=== PATIENT | male | born 1965 | race Caucasian/White ===

== ENCOUNTER 2017-06-04 20:37 | Emergency (ER) | payer SELFPAY ==
--- NOTE | 2017-06-04 20:39 | PDOC ---
History of Present Illness - General History Source: Patient Exam Limitations: No Limitations - History of Present Illness Initial Comments: 06/04/17 21:12 The patient is a 51-year-old male, with no significant past medical history, who presents to the ED with a laceration to the palmar surface of his right middle finger. The patient states that he was drinking from a wine glass. The glass fell and a piece of the glass cut his finger. He states that the skin was initially intact but after running it under some cold water a chunk of skin had came off. He does not recall when his last tetanus shot was. PAST MEDICAL HISTORY: no significant history PAST SURGICAL HISTORY: no significant history FAMILY HISTORY: no pertinent history HISTORY: Pt lives with family and is employed. MEDICATIONS: reviewed ALLERGIES: As per nursing notes Adult ROS General: No fevers or chills, no weakness, no weight loss HEENT: No change in vision. No sore throat,. No ear pain CardioVascular: No chest pain or shortness of breath Respiratory:No cough, or wheezing. Gastrointestinal: no nausea, vomiting, diarrhea or constipation, No rectal bleeding Genitourinary: No dysuria, hematuria, or frequency Musculoskeletal: No joint or muscle pain or swelling Neurologic: No headache, vertigo, dizziness or loss of consciousness Psychiatric: nor depression Skin: (+)Laceration to right middle finger. No easy bruising Endocrine: no increased thirst or abnormal weight change Allergic: no skin or latex allergy All other systems reviewed and normal Basic PE GENERAL: The patient is awake, alert, and fully oriented, in no acute distress. HEAD: Normal with no signs of trauma. EYES: Pupils equal, round and reactive to light, extraocular movements intact, sclera anicteric, conjunctiva clear. EXTREMITIES: Normal range of motion, no edema. NEUROLOGICAL: Normal speech, normal gait. PSYCH: Normal mood, normal affect. SKIN: (+)Right middle finger: there is an avulsion of the skin over the pip joint. The patient is able to fully flex and extend the finger with good strength. Sensation distally is intact. There is no foreign body on exam. Warm, Dry, normal turgor. <Deanna Valdes - Last Filed: 06/04/17 21:12> - General History Source: Patient Exam Limitations: No Limitations - History of Present Illness Initial Comments: A portion of this note was documented by scribe services under my direction. I have reviewed the details of the note, within reason, and agree with the documentation. The case summary and management plan written by me. Assessment and plan: This is a 51-year-old male who has a skin avulsion of the right middle finger palmar side. There is no visible injury to the ligaments and tendons of the finger patient has full range of motion with some discomfort but able to fully flex and extend the finger. Estrace and was placed over the avulsed area and a dressing was placed over that. Patient was referred to Dr. Stanley hand surgery in case he needs any skin grafting. <Scott Perez I - Last Filed: 06/04/17 21:49> - General Chief Complaint: Injury Stated Complaint: LACERATION TO RT MIDDLE FINGER Time Seen by Provider: 06/04/17 20:39 Past History <Deanna Valdes - Last Filed: 06/04/17 21:12> <Scott Perez I - Last Filed: 06/04/17 21:49> - Past Medical History Allergies/Adverse Reactions: Allergies Allergy/AdvReac Type Severity Reaction Status Date / Time No Known Allergies Allergy Verified 06/04/17 21:14 Home Medications: Ambulatory Orders NK [No Known Home Medication] 06/04/17 Review of Systems - Review of Systems Able to Perform ROS?: Yes <Deanna Valdes - Last Filed: 06/04/17 21:12> *DC/Admit/Observation/Transfer - Attestations Scribe Attestion: 06/04/17 21:20 Documentation prepared by Deanna Valdes, acting as senior medical director for Scott Perez MD. <Deanna Valdes - Last Filed: 06/04/17 21:12> - Discharge Dispostion Admit: No <Scott Perez I - Last Filed: 06/04/17 21:49> Diagnosis at time of Disposition: Laceration of right middle finger - Discharge Dispostion Disposition: HOME Condition at time of disposition: Good - Patient Instructions Additional Instructions: Keep the finger clean and dry, change the Band-Aid daily reapply a little bacitracin and a fresh Band-Aid. Follow-up with the hand doctor Dr. Stanley 's phone number is [phone]. Return to the emergency department immediately with ANY new, persistent or worsening symptoms. Continue any medications as previously prescribed by your physician. You should follow up with your primary doctor as soon as possible regarding today's emergency department visit. . Please make sure your doctor reviews the results of your emergency evaluation. Thank you for coming to the Emergency Department today for your care. It was a pleasure to see you today. Please note that your evaluation is INCOMPLETE until you follow-up with your doctor.
[2017-06-04] MEDS ORDERED: DIPHTH,PERTUSS(ACELL),TET 0.5 ML DISP.SYRIN IM ONE (20:56)
[2017-06-04 21:50] VITALS: BP 124/80; PULSE 66; TEMP 97.8; BMI 27.8
== END 2017-06-04 21:10 | disposition home or self-care (01) ==
LOC: FER 20:37
PROC: 3E0234Z Introduction of Serum, Toxoid and Vaccine into Muscle, Percutaneous Approach (ICD-10-PCS; principal; 2017-06-04)
DX: S61.212A Laceration without foreign body of right middle finger without damage to nail, initial encounter (principal); W25.XXXA Contact with sharp glass, initial encounter; Y93.89 Activity, other specified; Y92.89 Other specified places as the place of occurrence of the external cause
CPT/HCPCS: 90715; 99282-25